=== PATIENT | male | born 1975 | race Caucasian/White ===

== ENCOUNTER 2021-03-18 08:30 | Emergency (ER) | payer BC, OTHER ==
[~2021-03-18] VITALS: Ht 188 cm; Wt 109.7 kg
[2021-03-18] MEDS ORDERED: KETOROLAC 60MG 2ML VIAL IM ONE (11:00)
--- NOTE | 2021-03-18 11:59 | REPVR ---
PROCEDURE INFORMATION: Exam: CT Lumbar Spine Without Contrast Exam date and time: 03/18/2021 11:22 AM Age: 45 years old Clinical indication: Low back pain; Additional info: Severe low back pain radiating down R thigh TECHNIQUE: Imaging protocol: Computed tomography images of the lumbar spine without contrast. Radiation optimization: All CT scans at this facility use at least one of these dose optimization techniques: automated exposure control; mA and/or kV adjustment per patient size (includes targeted exams where dose is matched to clinical indication); or iterative reconstruction. COMPARISON: CT ABD PELVIS W/O CONTRAST 05/11/2016 8:36 PM FINDINGS: Vertebrae: No acute fracture. Normal alignment. Lytic lucencies in the right iliac bone measuring up to 8.1 mm with sclerotic margins, increased in size from previous study likely degenerative, clinical correlation is recommended. L1-L2: No significant disc protrusion. No severe spinal canal stenosis. No significant neural foraminal narrowing. L2-L3: No significant disc protrusion. No severe spinal canal stenosis. No significant neural foraminal narrowing. L3-L4: Minimal diffuse disc bulge without any central spinal canal stenosis. No significant neural foraminal narrowing. L4-L5: Mild diffuse disc bulge causing mild central spinal canal stenosis, and mild to moderate bilateral neural foraminal narrowing, right greater than left. L5-S1: Diffuse disc bulge with small central disc protrusion resulting in mild central spinal canal stenosis. Bilateral neural foramina are patent. Soft tissues: Unremarkable. Kidneys: Nonobstructing 2-3 mm stones in the right kidney. IMPRESSION: L4-L5: Mild diffuse disc bulge causing mild central spinal canal stenosis, and mild to moderate bilateral neural foraminal narrowing, right greater than left. L5-S1: Diffuse disc bulge with small central disc protrusion resulting in mild central spinal canal stenosis. Bilateral neural foramina are patent. Electronically signed by: India Colin On 03/18/2021 11:59:18 AM
[2021-03-18] MEDS ORDERED: FLOM0.4C39 PO (12:17)
[2021-03-18] MEDS ORDERED: METH-1165 PO (12:17)
[2021-03-18] MEDS ORDERED: KETO10TAB PO (12:17)
[2021-03-18 12:30] VITALS: BP 131/76
== END 2021-03-18 12:32 | disposition home or self-care (01) ==
LOC: M ED 08:30
DX: M51.27 Other intervertebral disc displacement, lumbosacral region (principal); M48.07 Spinal stenosis, lumbosacral region; M51.26 Other intervertebral disc displacement, lumbar region; M48.061 Spinal stenosis, lumbar region without neurogenic claudication; N20.0 Calculus of kidney; Z79.899 Other long term (current) drug therapy
CPT/HCPCS: 72131; 96372; 99283; J1885

== ENCOUNTER → 2023-09-20 | Outpatient (CLI) | payer BC ==
[~2023-09-20] MED LIST: FLOM0.4C39 PO; KETO10TAB PO; METH-1165 PO
[2023-09-20 14:03] LABS: BASO % 0.3 % (0.0-1.0); EOS # 0.1 10^3/uL (0.0-0.5); EOS % 1.7 % (0.0-3.0); HEMATOCRIT 49.4 % (42.0-52.0); HEMOGLOBIN 16.3 g/dl (13.5-17.5); LYMPH # 1.8 10^3/uL (1.5-5.0); LYMPH % 25.5 % (24.0-44.0); MEAN CORPUSCULAR HEMOGLOBIN 30.1 pg (27.0-33.0); MEAN CORPUSCULAR VOLUME 91.1 fl (80.0-96.0); MONO # 0.7 10^3/uL (0.0-0.8); MONO % 9.4 % (2.0-8.0); NEUTROPHILS # 4.4 10^3/uL (1.5-8.5); NEUTROPHILS % 62.8 % (36.0-66.0); PLATELET COUNT, AUTOMATED 250 10^3/uL (150-450); RED BLOOD COUNT 5.42 10^6/uL (4.30-6.10)
[2023-09-20 14:39] LABS: HEMOGLOBIN A1c 5.4 % (4.0-6.0)
[2023-09-20 16:39] LABS: CPK CREATINE PHOSPHOKINASE 94 U/L (46-171)
[2023-09-20 16:40] LABS: ALBUMIN 4.4 G/DL (3.2-5.2); ALKALINE PHOSPHATASE 55 U/L (46-116); ALT/SGPT 24 U/L (7.0-40); AST/SGOT 11 U/L (<34); BILIRUBIN,TOTAL 0.4 MG/DL (0.3-1.2); BLOOD UREA NITROGEN 13 MG/DL (9-23); CALCIUM LEVEL 9.2 MG/DL (8.5-10.1); CARBON DIOXIDE LEVEL 24 MMOL/L (20-31); CHLORIDE LEVEL 109 MMOL/L (98-107); CHOLESTEROL LEVEL 198 MG/DL (<200); CHOLESTEROL RISK RATIO 3.96 (<5); CK-MB VALUE MASS < 1.0 NG/ML (<3.6); CREATININE FOR GFR 0.89 MG/DL (0.70-1.30); GLOMERULAR FILTRATION RATE > 60.0 (>60); GLUCOSE, FASTING 107 MG/DL (60-100); LDL CHOLESTEROL 132.8 MG/DL (<100); MB/CK RELATIVE INDEX 1.06 (< OR =4); POTASSIUM SERUM 4.7 MMOL/L (3.5-5.1); SODIUM LEVEL 141 MMOL/L (136-145); TOTAL PROTEIN 7.1 G/DL (5.7-8.2); TRIGLYCERIDES LEVEL 76 MG/DL (<150)
[2023-09-20 16:41] LABS: THYROID STIMULATING HORMONE 2.015 uIU/ML (0.55-4.78)
== END ==
LOC: M PLALAB 10:09
PROVIDERS: ATTEND Nurse Practitioner Family
DX: R00.2 Palpitations (principal); Z13.1 Encounter for screening for diabetes mellitus; E78.2 Mixed hyperlipidemia

== ENCOUNTER → 2024-06-22 | Outpatient (CLI) | payer BC | LOC: M CARPUL 11:57 | PROVIDERS: ATTEND Internal Medicine Cardiovascular Disease | DX: R94.31 Abnormal electrocardiogram [ECG] [EKG] (principal); R00.2 Palpitations ==

== ENCOUNTER → 2024-07-11 | Outpatient (CLI) | payer BC | LOC: M PLAIMG 10:34 | PROVIDERS: ATTEND Internal Medicine Cardiovascular Disease | DX: R94.31 Abnormal electrocardiogram [ECG] [EKG] (principal); R00.2 Palpitations; R60.0 Localized edema; I45.19 Other right bundle-branch block; I27.20 Pulmonary hypertension, unspecified; I08.1 Rheumatic disorders of both mitral and tricuspid valves ==